=== PATIENT | male | born 1945 | race Caucasian/White ===

== ENCOUNTER 2017-12-22 05:50 | Day surgery (SDC) | payer BC ==
[2017-12-21 15:38] LABS: BASOPHILS % (AUTO) 0.4 % (0-1); EOSINOPHILS # (AUTO) 0.1 X10'3 (0-0.9); EOSINOPHILS % (AUTO) 1.7 % (0-6); HEMATOCRIT 52.1 % (42.0-52.0); LYMPHOCYTES # (AUTO) 1.9 X10'3 (1.1-4.8); LYMPHOCYTES % (AUTO) 26.6 % (21-51); MEAN CORPUSCULAR HEMOGLOBIN 31.1 PG (27.0-31.0); MEAN CORPUSCULAR HGB CONC 35.1 % (33.0-36.5); MEAN CORPUSCULAR VOLUME 88.6 FL (78-98); MEAN PLATELET VOLUME 8.1 FL (7.4-10.4); MONOCYTES # (AUTO) 0.8 X10'3 (0-0.9); MONOCYTES % (AUTO) 10.7 % (2-12); NEUTROPHILS # (AUTO) 4.3 X10'3 (1.8-7.7); NEUTROPHILS % (AUTO) 60.6 % (42-75); PLATELET COUNT 186 X10'3 (140-440); RED BLOOD COUNT 5.88 X10'6 (4.70-6.10); RED CELL DISTRIBUTION WIDTH 13.6 % (11.5-14.5); WHITE BLOOD COUNT 7.1 X10'3 (4.5-11.0)
[2017-12-21 15:47] LABS: ALBUMIN 3.9 G/DL (3.4-5.0); ANION GAP 8 (8-16); BLOOD UREA NITROGEN 21 MG/DL (7-18); BUN/CREATININE RATIO 18.3 (5.4-32.0); CALCIUM 9.6 MG/DL (8.5-10.1); CHLORIDE 103 MMOL/L (99-107); CREATININE 1.15 MG/DL (0.60-1.10); GLUCOSE 116 MG/DL (70-104); MAGNESIUM 1.8 MG/DL (1.5-2.4); POTASSIUM 3.6 MMOL/L (3.5-5.1); SODIUM 138 MMOL/L (135-145); TOTAL CARBON DIOXIDE 26.6 MMOL/L (24-32); eGFR 63 ML/MIN
[2017-12-21 15:49] LABS: HEMOGLOBIN 18.3 g/dl (14.0-17.9)
[~2017-12-22] VITALS: Ht 182.9 cm; Wt 120.1 kg
[2017-12-22] MEDS ORDERED: ceFAZolin 1GM/D5W- ADD-VANTAGE 50 ML IV ONE (06:31)
[2017-12-22] MEDS ORDERED: normal saline 1000ml 1,000 ML IV SCH (06:35)
[2017-12-22 06:40] VITALS: BP 119/52
[2017-12-22] MEDS ORDERED: APIX5TAB3 PO (06:40)
[2017-12-22] MEDS ORDERED: OMEP40CA37 PO (06:40)
[2017-12-22] MEDS ORDERED: LOSA25TA96 PO (06:40)
[2017-12-22] MEDS ORDERED: CHOL10002 PO (06:40)
[2017-12-22] MEDS ORDERED: ATOR10TA87 PO (06:40)
[2017-12-22] MEDS ORDERED: CYAN-34 PO (06:40)
[2017-12-22] MEDS ORDERED: HYDR25TA4 PO (06:40)
== END 2017-12-22 06:49 | disposition home or self-care (01) ==
LOC: SSTAY O 05:50
PROVIDERS: ATTEND Internal Medicine Cardiovascular Disease
DX: I49.5 Sick sinus syndrome (principal); I48.91 Unspecified atrial fibrillation; I10 Essential (primary) hypertension; E78.5 Hyperlipidemia, unspecified; E66.9 Obesity, unspecified; G47.33 Obstructive sleep apnea (adult) (pediatric); G43.909 Migraine, unspecified, not intractable, without status migrainosus; M19.90 Unspecified osteoarthritis, unspecified site; Z53.8 Procedure and treatment not carried out for other reasons; Z79.01 Long term (current) use of anticoagulants; Z90.89 Acquired absence of other organs; Z96.641 Presence of right artificial hip joint; Z68.35 Body mass index [BMI] 35.0-35.9, adult; Z98.890 Other specified postprocedural states; Z79.899 Other long term (current) drug therapy
CPT/HCPCS: 36415; 80048; 83735; 85025; 93005; J7030

== ENCOUNTER 2017-12-29 09:49 | Day surgery (SDC) | payer BC ==
[2017-12-28 16:02] LABS: BASOPHILS % (AUTO) 0.5 % (0-1); EOSINOPHILS # (AUTO) 0.1 X10'3 (0-0.9); EOSINOPHILS % (AUTO) 2.1 % (0-6); HEMATOCRIT 52.6 % (42.0-52.0); LYMPHOCYTES # (AUTO) 2.5 X10'3 (1.1-4.8); LYMPHOCYTES % (AUTO) 35.3 % (21-51); MEAN CORPUSCULAR HEMOGLOBIN 30.7 PG (27.0-31.0); MEAN CORPUSCULAR HGB CONC 34.7 % (33.0-36.5); MEAN CORPUSCULAR VOLUME 88.7 FL (78-98); MEAN PLATELET VOLUME 8.4 FL (7.4-10.4); MONOCYTES # (AUTO) 0.7 X10'3 (0-0.9); MONOCYTES % (AUTO) 9.7 % (2-12); NEUTROPHILS # (AUTO) 3.7 X10'3 (1.8-7.7); NEUTROPHILS % (AUTO) 52.4 % (42-75); PLATELET COUNT 186 X10'3 (140-440); RED BLOOD COUNT 5.94 X10'6 (4.70-6.10); RED CELL DISTRIBUTION WIDTH 13.4 % (11.5-14.5); WHITE BLOOD COUNT 7.1 X10'3 (4.5-11.0)
[2017-12-28 16:08] LABS: HEMOGLOBIN 18.2 g/dl (14.0-17.9)
[2017-12-28 16:12] LABS: INR 1.1 INR; PARTIAL THROMBOPLASTIN TIME 35 SECONDS (22-32); PROTHROMBIN TIME 11.4 SECONDS (9.0-12.0)
[2017-12-28 16:13] LABS: ALBUMIN 3.7 G/DL (3.4-5.0); ANION GAP 11 (8-16); BLOOD UREA NITROGEN 21 MG/DL (7-18); BUN/CREATININE RATIO 19.6 (5.4-32.0); CALCIUM 9.3 MG/DL (8.5-10.1); CHLORIDE 105 MMOL/L (99-107); CREATININE 1.07 MG/DL (0.60-1.10); GLUCOSE 123 MG/DL (70-104); MAGNESIUM 1.9 MG/DL (1.5-2.4); POTASSIUM 3.4 MMOL/L (3.5-5.1); SODIUM 141 MMOL/L (135-145); TOTAL CARBON DIOXIDE 25.5 MMOL/L (24-32); eGFR 68 ML/MIN
[~2017-12-29] VITALS: Ht 182.9 cm; Wt 120.0 kg
[2017-12-29] VITALS (10 sets, daily range): BP systolic 131–149; BP diastolic 66–87
[~2017-12-29 09:49] MED LIST: APIX5TAB3 PO; ATOR10TA87 PO; CHOL10002 PO; CYAN-34 PO; HYDR25TA4 PO; LOSA25TA96 PO; OMEP40CA37 PO
[2017-12-29] MEDS ORDERED: normal saline 1000ml 1,000 ML IV SCH (10:10)
[2017-12-29] MEDS ORDERED: ceFAZolin 1,000 MG in NS 100ML IVPB IV ONE (10:15)
[2017-12-29] MEDS ORDERED: ENOX120D5 SQ (10:17)
[2017-12-29] MEDS ORDERED: midazolam 2 mg/2 ml injection ONE ×2 (12:06→13:10)
[2017-12-29] MEDS ORDERED: ceFAZolin 1000mg inj ONE (12:06)
[2017-12-29] MEDS ORDERED: fentaNYL/PF 50MCG/1 ML 2ML syringe ONE (12:06)
[2017-12-29] MEDS ORDERED: ceFAZolin 1GM/D5W- ADD-VANTAGE 50 ML IV ONE (12:06)
[2017-12-29] MEDS ORDERED: sod chloride 0.9% 10ml flush syringe IV SCH (16:00)
[2017-12-29] MEDS ORDERED: ibuprofen 200mg tablet PO ONE (17:00)
[2017-12-29] MEDS ORDERED: ceFAZolin 1GM/D5W- ADD-VANTAGE 50 ML IV SCH (18:30)
== END 2017-12-29 18:55 | disposition home or self-care (01) ==
LOC: SSTAY O 09:49
PROVIDERS: ATTEND Internal Medicine Cardiovascular Disease
DX: I49.5 Sick sinus syndrome (principal); E78.5 Hyperlipidemia, unspecified; I48.91 Unspecified atrial fibrillation; I10 Essential (primary) hypertension; G47.33 Obstructive sleep apnea (adult) (pediatric); E66.9 Obesity, unspecified; M19.90 Unspecified osteoarthritis, unspecified site; K21.9 Gastro-esophageal reflux disease without esophagitis; G43.909 Migraine, unspecified, not intractable, without status migrainosus; Z79.01 Long term (current) use of anticoagulants; Z86.73 Personal history of transient ischemic attack (TIA), and cerebral infarction without residual deficits; Z90.89 Acquired absence of other organs; Z96.641 Presence of right artificial hip joint; Z68.35 Body mass index [BMI] 35.0-35.9, adult; Z98.52 Vasectomy status; Z79.899 Other long term (current) drug therapy; Z98.890 Other specified postprocedural states
CPT/HCPCS: 33208; 36415; 71046; 80048; 83735; 85025; 85610; 85730; 93005; 99152; 99153; A4565; C1785; C1898; J0690; J2250; J3010; J7030; A4620

== ENCOUNTER 2021-02-05 07:38 | Outpatient (CLI) | payer MEDICARE, BC ==
[2021-02-05] VITALS (22 sets, daily range): BP systolic 143–177; BP diastolic 74–107
[~2021-02-05 07:38] MED LIST changes: +ENOX120D5 SQ; +OMEP40CA21 PO; -OMEP40CA37 PO
== END 2021-02-05 23:59 | disposition home or self-care (01) ==
LOC: CARD DIAG 07:38
PROVIDERS: ATTEND Internal Medicine Cardiovascular Disease
DX: R42 Dizziness and giddiness (principal)
CPT/HCPCS: 93660